=== PATIENT | male | born 1975 | race Caucasian/White ===

== ENCOUNTER 2016-07-24 13:20 | Emergency (ER) | payer OTHER ==
--- NOTE | 2016-07-24 14:44 | EKG ---
[facility] [address] [place] [address] Test Date: 2016-07-24 Test Time: 13:31:36 Pat Name: YAHAIRA LUNDBERG Department: Room: Gender: M Clinical Services Assistant: : 1975 Requested By: FARIDEH CA Order Number: [id number] Reading MD: Measurements Intervals [place] Rate: 69 P: 29 CO: 120 QRS: 25 QRSD: 92 T: 16 QT: 370 QTc: 398 Interpretive Statements SINUS RHYTHM RI6.01 Unconfirmed report No previous ECG available for comparison
[2016-07-24] MEDS ORDERED: FENTANYL PF 100 MCG/2 ML VIAL. IV PRN (15:00)
[2016-07-24 15:06] LABS: BASO % 0 % (0-3); EOS % 2 % (0-3); HEMATOCRIT 44.9 % (39.0-53.0); HEMOGLOBIN 15.1 g/dL (13.0-17.5); LYMPH # 1.2 x10^3/uL (1.0-4.8); LYMPH % 16 % (24-48); MEAN CORPUSCULAR HEMOGLOBIN 32 pg (25-35); MEAN CORPUSCULAR HGB CONC 34 g/dL (31-37); MEAN CORPUSCULAR VOLUME 95 fL (79-100); MONO % 14 % (0-9); NEUT % 68 % (31-73); PLATELET COUNT 188 x10^3/uL (140-400); RED BLOOD COUNT 4.74 x10^6/uL (4.30-5.70); RED CELL DISTRIBUTION WIDTH 13.7 % (11.5-14.5); WHITE BLOOD COUNT 7.6 x10^3/uL (4.0-11.0)
[2016-07-24 15:14] LABS: INR 1.1 (0.8-1.1); PROTHROMBIN TIME PATIENT 13.7 SEC (11.7-14.0)
[2016-07-24] MEDS ORDERED: ONDANSETRON PF 4 MG/2 ML VIAL. IV ONE (15:15)
[2016-07-24] MEDS ORDERED: CONTRAST GIVEN MC PRN (15:15)
[2016-07-24] MEDS ORDERED: IOHEXOL 300 MG/ML 75 ML VIAL IV ONE (15:15)
[2016-07-24] MEDS ORDERED: IOHEXOL 240 MG/ML 50ML VIAL. PO ONE (15:15)
[2016-07-24 15:16] LABS: CALCIUM 9.4 mg/dL (8.5-10.1); CREATININE 1.1 mg/dL (0.7-1.3); GFR 73.4; POTASSIUM 4.2 mmol/L (3.5-5.1)
[2016-07-24 15:24] LABS: ALBUMIN 3.8 g/dL (3.4-5.0); TOTAL BILIRUBIN 0.5 mg/dL (0.2-1.0); TOTAL PROTEIN 7.7 g/dL (6.4-8.2)
[2016-07-24 15:36] LABS: BILIRUBIN,URINE NEGATIVE (NEG); GLUCOSE,URINE NEGATIVE (NEG); NITRITE,URINE NEGATIVE (NEG); PH,URINE 5.5; PROTEIN,URINE NEGATIVE (NEG-TRACE)
[2016-07-24 15:43] LABS: BACTERIA,URINE 0 /HPF (0-FEW); RBC,URINE 0 /HPF (0-2); WBC,URINE 0 /HPF (0-4)
[2016-07-24 16:00] VITALS: BP 116/62
--- NOTE | 2016-07-24 16:26 | PHYS DOC ---
Past Medical History Past Medical History: Other Additional Past Medical Histor: NF2 Past Surgical History: Other Additional Past Surgical Histo: ACHILLES TENDON SX,HERNIA Alcohol Use: Rarely Drug Use: None Adult General Chief Complaint Chief Complaint: ABDOMINAL PAIN HPI HPI Patient is a 41 year old male complaining of left-sided abdominal pain which started last night before he went to bed, did not keep him awake during the night, but when he woke up this morning it was "bad" and has persisted since he woke up without getting better or going away. He did have pain similar to this when he had an umbilical hernia, had 2 surgeries for that in 2007 and 2008. He has not had recurrence of his umbilical hernia. He has had nausea but no vomiting. Last bowel movement was yesterday afternoon. It was normal. He has been otherwise well. PCP Dr. Whipple Review of Systems Review of Systems Constitutional: Denies fever or chills [] Eyes: Denies change in visual acuity, redness, or eye pain [] HENT: Denies nasal congestion or sore throat [] Respiratory: Denies cough or shortness of breath [] Cardiovascular: Denies chest pain GI: As in history of present illness : Denies dysuria or hematuria [] Musculoskeletal: Denies back pain or joint pain [] Integument: Denies rash or skin lesions [] Neurologic: Denies headache, focal weakness or sensory changes [] Current Medications Current Medications Current Medications Medications (Trade) Dose Ordered Sig/Gardenia Start Time Stop Time Status Last Admin Dose Admin Fentanyl Citrate (Fentanyl 2ml Vial) 50 mcg PRN Q15MIN PRN 07/24/16 15:00 07/25/16 14:59 07/24/16 15:11 50 MCG Info (Do NOT chart on this entry -- for MONITORING) 1 each PRN DAILY PRN 07/24/16 15:15 07/26/16 15:14 Iohexol (Omnipaque 240 Mg/ml) 30 ml 1X ONCE 07/24/16 15:15 07/24/16 15:17 DC 07/24/16 15:15 30 ML Iohexol (Omnipaque 300 Mg/ml) 75 ml 1X ONCE 07/24/16 15:15 07/24/16 15:17 DC 07/24/16 16:50 75 ML Magnesium Citrate (Citroma) 296 ml 1X ONCE 07/24/16 17:30 07/24/16 17:31 DC Ondansetron HCl (Zofran) 8 mg 1X ONCE 07/24/16 15:15 07/24/16 15:16 DC 07/24/16 15:10 8 MG Allergies Allergies Allergies Coded Allergies Type Severity Reaction Last Updated Verified No Known Drug Allergies 09/03/15 No Physical Exam Physical Exam Constitutional: Well developed, well nourished, no acute distress, non-toxic appearance. [] HENT: Normocephalic, atraumatic, bilateral external ears normal, nose normal. [ ] Eyes: conjunctiva normal, no discharge. [] Neck: Normal range of motion, no stridor. [] Cardiovascular:Heart rate regular rhythm, no murmur [] Lungs & Thorax: Bilateral breath sounds clear to auscultation [] Abdomen: Moderately distended. Increased tympany on the left. Bowel sounds present to hyperactive, slightly high-pitched. Umbilical hernia scar is present , no umbilical hernia noted. No abdominal wall hernia noted. Tender to palpation on the left side of the abdomen, nonlocalized, no rebound or guarding. Essentially no right-sided abdominal tenderness present. Skin: Warm, dry, no erythema, no rash. [] Extremities: No tenderness, no cyanosis, no clubbing, ROM intact, no edema. [] Neurologic: Alert and oriented X 3, normal motor function, normal sensory function, no focal deficits noted. [] Current Patient Data Vital Signs Vital Signs Date Time Temp Pulse Resp B/P Pulse Ox O2 Delivery O2 Flow Rate FiO2 07/24/16 16:00 58 116/62 97 Room Air 07/24/16 15:11 18 07/24/16 13:34 98.1 98.1 Lab Values Laboratory Tests Test 07/24/16 13:30 07/24/16 15:30 White Blood Count 7.6x10^3/uL (4.0-11.0) Red Blood Count 4.74x10^6/uL (4.30-5.70) Hemoglobin 15.1g/dL (13.0-17.5) Hematocrit 44.9% (39.0-53.0) Mean Corpuscular Volume 95fL (79-100) Mean Corpuscular Hemoglobin 32pg (25-35) Mean Corpuscular Hemoglobin Concent 34g/dL (31-37) Red Cell Distribution Width 13.7% (11.5-14.5) Platelet Count 188x10^3/uL (140-400) Neutrophils (%) (Auto) 68% (31-73) Lymphocytes (%) (Auto) 16% (24-48) L Monocytes (%) (Auto) 14% (0-9) H Eosinophils (%) (Auto) 2% (0-3) Basophils (%) (Auto) 0% (0-3) Neutrophils # (Auto) 5.2x10^3uL (1.8-7.7) Lymphocytes # (Auto) 1.2x10^3/uL (1.0-4.8) Monocytes # (Auto) 1.0x10^3/uL (0.0-1.1) Eosinophils # (Auto) 0.1x10^3/uL (0.0-0.7) Basophils # (Auto) 0.0x10^3/uL (0.0-0.2) Prothrombin Time 13.7SEC (11.7-14.0) Prothrombin Time INR 1.1 (0.8-1.1) PTT 29SEC (24-38) Sodium Level 143mmol/L (136-145) Potassium Level 4.2mmol/L (3.5-5.1) Chloride Level 105mmol/L (98-107) Carbon Dioxide Level 29mmol/L (21-32) Anion Gap 9 (6-14) Blood Urea Nitrogen 27mg/dL (8-26) H Creatinine 1.1mg/dL (0.7-1.3) Estimated GFR (Cockcroft-Gault) 73.4 BUN/Creatinine Ratio 25 (6-20) H Glucose Level 93mg/dL (70-99) Calcium Level 9.4mg/dL (8.5-10.1) Total Bilirubin 0.5mg/dL (0.2-1.0) Aspartate Amino Transferase (AST) 26U/L (15-37) Alanine Aminotransferase (ALT) 48U/L (16-63) Alkaline Phosphatase 82U/L (46-116) Total Protein 7.7g/dL (6.4-8.2) Albumin 3.8g/dL (3.4-5.0) Albumin/Globulin Ratio 1.0 (1.0-1.7) Lipase 242U/L (73-393) Urine Collection Type Unknown Urine Color Yellow Urine Clarity Clear Urine pH 5.5 Urine Specific [place] >=1.030 Urine Protein Negativemg/dL (NEG-TRACE) Urine Glucose (UA) Negativemg/dL (NEG) Urine Ketones (Stick) Negativemg/dL (NEG) Urine Blood Negative (NEG) Urine Nitrite Negative (NEG) Urine Bilirubin Negative (NEG) Urine Urobilinogen Dipstick 1.0mg/dL (0.2 mg/dL) Urine Leukocyte Esterase Negative (NEG) Urine RBC 0/HPF (0-2) Urine WBC 0/HPF (0-4) Urine Bacteria 0/HPF (0-FEW) Urine Mucus Mod/LPF Laboratory Tests 07/24/16 13:30 Laboratory Tests 07/24/16 13:30 EKG EKG [] Radiology/Procedures Radiology/Procedures CT scan of the abdomen and pelvis read by the radiologist. Negative for bowel obstruction or any other acute abnormality. [] Course & Med Decision Making Course & Med Decision Making Pertinent Labs and Imaging studies reviewed. (See chart for details) 41-year-old male with a history of 2 surgeries for umbilical hernia repair several years ago, presents with left-sided abdominal pain since yesterday. I'm concerned about a possible bowel dissection. I discussed with the patient labs, CT scan with oral and IV contrast, and he is agreeable to that plan. He was given some IV pain and nausea medications. Labs unrevealing, CT scan negative for acute abnormality. The patient stated after CT scan his pain was about the same to slightly improved. I discussed with the patient and his return precautions. We will start him on antibiotics for possible diverticulitis since his pain is left-sided and has persisted for more than 12 hours. He is agreeable to that plan. [] Dragon Disclaimer Dragon Disclaimer This electronic medical record was generated, in whole or in part, using a voice recognition dictation system. Departure Departure Impression: Primary Impression: Left sided abdominal pain of unknown cause Disposition: HOME, SELF-CARE Condition: STABLE Referrals: ROSA WHIPPLE MD (PCP) Patient Instructions: Abdominal Pain, [id number], Diverticulitis, Easy-to- Read Additional Instructions: Go home and drink the bottle of magnesium citrate, which is a strong laxative. See if having good "results" will help your pain. Even though your tests were normal, we will start you on antibiotics for possible diverticulitis. Take as directed. If you get worse instead of better, if you have new symptoms, return to emergency for recheck. If not better in 3-5 days, see your doctor. Scripts Ciprofloxacin Hcl (Cipro)500 Mg Tablet1 Tab PO BID #20 TAB Prov:FARIDEH CA MD 07/24/16 Metronidazole 250 Mg Buurpp673 Mg PO TID #30 TAB Prov:FARIDEH CA MD 07/24/16 FARIDEH CA MD Jul 24, 2016 16:26
--- NOTE | 2016-07-24 17:14 | RAD ---
PQRS Compliance Statement: One or more of the following individualized dose reduction techniques were utilized for this examination: 1. Automated exposure control 2. Adjustment of the mA and/or kV according to patient size 3. Use of iterative reconstruction technique CT of the abdomen and pelvis with contrast, 07/24/2016: History: Left-sided abdominal pain, previous hernia repair Multidetector CT imaging was performed following oral and IV administration of contrast. The liver is unremarkable. No gallbladder abnormality is seen. The pancreas shows no abnormality. The spleen is of normal size. Tiny radiopacities in the left renal collecting system probably represent early IV excretion of the iodinated contrast material rather than calculi. The collecting systems and ureters are not dilated. No adrenal abnormality is detected. The abdominal aorta is unremarkable. No abdominal or pelvic adenopathy is seen. The bowel loops are not dilated. The appendix is visualized and shows no abnormality. No free fluid or free air is evident in the abdomen or pelvis. There is mild streaky increased density in the subcutaneous soft tissues in the umbilical region. This probably represents inflammation or scarring in this patient with a history of previous umbilical hernia repair. There is also slightly increased density in the abdominal fat deep to the presumed surgical site. No well-defined fluid collection is seen. No bowel herniation is evident. IMPRESSION: 1. Postsurgical change involving the anterior abdominal wall at the umbilical level. 2. No acute intra-abdominal or pelvic abnormality is detected.
[2016-07-24] MEDS ORDERED: CIPR500T94 PO (17:29)
[2016-07-24] MEDS ORDERED: METR250T3 PO (17:29)
[2016-07-24] MEDS ORDERED: MAGNESIUM CITRATE 296 ML SOLUTION. PO ONE (17:30)
== END 2016-07-24 17:37 | disposition home or self-care (01) ==
LOC: ER 13:20
DX: R10.9 Unspecified abdominal pain (principal); Z87.19 Personal history of other diseases of the digestive system; Z98.890 Other specified postprocedural states
CPT/HCPCS: 36415; 74177; 80053; 81001; 83690; 85027; 85610; 85730; 93005; 96374; 96375; 99285; J2405; J3010; Q9966; Q9967

== ENCOUNTER 2020-05-20 13:39 | Emergency (ER) | payer OTHER ==
[~2020-05-20] VITALS: Ht 170.2 cm; Wt 130.0 kg
[~2020-05-20 13:39] MED LIST: CIPR500T94 PO; METR-111 PO
[2020-05-20 14:15] VITALS: BP 139/73
--- NOTE | 2020-05-20 15:01 | RAD ---
Right Leg Venous Doppler Ultrasound, 05/20/2020 Indication: Right hip pain Comparison: None available Procedure: Real-time grayscale, color flow color duplex Doppler and spectral analysis are obtained w ith and without compression in the area of the common femoral vein, superficial femoral vein - femora l vein junction, main femoral vein (superficial femoral vein) and popliteal vein. Veins of the proxim al calf are also imaged. Findings: There is occlusive thrombus in the right superficial femoral vein proximally to the poplit eal vein. Normal duplex flow, color flow and compressibility of all remainder visualized vein segment s. No evidence of deep venous thrombus is present. Impression: Study is positive for DVT involving the right lower extremity Electronically signed by: Katie Barbosa MD (05/20/2020 2:58 PM) [id number]
--- NOTE | 2020-05-20 15:15 | ED.ADGEN ---
Past Medical History Past Medical History: Other Additional Past Medical Histor: NF2 Past Surgical History: Other Additional Past Surgical Histo: ACHILLES TENDON SX,HERNIA Smoking Status: Never Smoker Alcohol Use: Rarely Drug Use: None General Adult EDM: Chief Complaint: LOWER EXTREMITY SWELLING HPI: HPI: Patient is a 45-year-old male who presents to the emergency room complaining of right leg swelling. Swelling started over the last 3 to 4 days. He has never had anything similar to this in the past. He denies any recent travel. He states that the leg is overall very painful. He has pain in his calf that radiates into his lateral thigh. He denies any significant redness to the leg. He has never had a blood clot previously. Review of Systems: Review of Systems: Complete ROS is negative unless otherwise documented in HPI Allergies: Allergies: Allergies Coded Allergies Type Severity Reaction Last Updated Verified No Known Drug Allergies 09/03/15 No Physical Exam: PE: General: Awake, alert, NAD. Well Nourished, well hydrated. Cooperative HEENT: Atraumatic, EOMI, PERRL, airway patent, moist oral mucosa Neck: Supple, trachea midline Respiratory: CTA bilaterally, normal effort, no wheezing/crackles CV: RRR, no murmur, cap refill <2 GI: Soft, nondistended, nontender, no masses MSK: Right lower extremity: Swelling and mild erythema to the right calf with tenderness upon flexion of and pressure along the calf, 2+ DP pulse, intact sensation/strength Skin: Warm, dry, intact Neuro: A&O x3, speech NL, sensory and motor grossly intact, no focal deficits Psych: Normal affect, normal mood, not suicidal or homicidal Current Patient Data: Vital Signs: Vital Signs Date Time Temp Pulse Resp B/P (MAP) Pulse Ox O2 Delivery O2 Flow Rate FiO2 05/20/20 14:15 100.0 84 18 139/73 (95) 95 Room Air 100.0 EKG: EKG: [] Heart Score: Risk Factors: Risk Factors: DM, Current or recent (<one month) smoker, HTN, HLP, family histo ry of CAD, obesity. Risk Scores: Score 0 - 3: 2.5% MACE over next 6 weeks - Discharge Home Score 4 - 6: 20.3% MACE over next 6 weeks - Admit for Clinical Observation Score 7 - 10: 72.7% MACE over next 6 weeks - Early Invasive Strategies Radiology/Procedures: Radiology/Procedures: [] Course & Med Decision Making: Course & Med Decision Making Pertinent Labs and Imaging studies reviewed. (See chart for details) Patient 45-year-old male who presents to the emergency room with right leg swelling. Ultrasound was ordered and patient has a DVT at this time. I discussed with him the options of being admitted versus being sent home on oral anticoagulants. At this time he would like to go home. We have discussed the risks and benefits of anticoagulation. He will be placed on Eliquis with a loading dose. I have discussed with him that he will need to follow-up with his primary care doctor because he will need further anticoagulation. Patient's test results and vitals while in the ED were fully reviewed and discussed with the patient. Patient is stable and at this time does not need admission to the hospital. We have discussed strict return precautions and the importance of following up with their Primary Care Physician. Patient stated understanding and was given an opportunity to ask any questions. Patient is in agreement with plan. Bruce Disclaimer: Bruce Disclaimer: This electronic medical record was generated, in whole or in part, using a voice recognition dictation system. Departure Departure Impression: Primary Impression: DVT (deep venous thrombosis) Disposition: 01 DC HOME SELF CARE/HOMELESS Condition: STABLE Referrals: UNKNOWN PCP NAME (PCP) Patient Instructions: Deep Vein Thrombosis Scripts Apixaban (ELIQUIS) 5 Mg Tablet 5 MG PO BID, #74 TAB Take 2 tablets twice a day for 7 days then take 1 tablet once a day Prov: NBA WALTERS MD 05/20/20 NBA WALTERS MD May 20, 2020 15:15
[2020-05-20] MEDS ORDERED: APIX5TAB PO (15:34)
== END 2020-05-20 15:50 | disposition home or self-care (01) ==
LOC: ER 13:39
DX: I82.401 Acute embolism and thrombosis of unspecified deep veins of right lower extremity (principal)
CPT/HCPCS: 93971; 99284-25

== ENCOUNTER 2020-06-02 21:11 | Inpatient (IN) | payer OTHER ==
[~2020-06-02] VITALS: Ht 170.2 cm; Wt 114.6 kg
[~2020-06-02 21:11] MED LIST changes: +APIX5TAB PO
--- NOTE | 2020-06-02 22:47 | RAD ---
Right Lower Extremity Venous Doppler Ultrasound History: Worsening swelling Comparison: May 20, 2020 Procedure: Color flow, duplex, spectral analysis and 2D images are obtained with and without compress ion in the area of the common femoral vein, superficial femoral vein - femoral vein junction, main fe moral vein (superficial femoral vein) and popliteal vein. Veins of the proximal calf are also imaged. Findings: There is nonocclusive thrombus in the deep femoral vein and the proximal and mid femoral vein and occ luding thrombus in the distal femoral vein and popliteal vein and anterior peroneal vein. There is al so clot in the PT views. Impression: Extensive right-sided DVT has become worse since the prior study. Electronically signed by: Antony Castanon III, MD (06/02/2020 10:45 PM) [facility]
--- NOTE | 2020-06-02 23:52 | ED.ADGEN ---
Past Medical History Past Medical History: DVT, Other Additional Past Medical Histor: NF2 Past Surgical History: Other Additional Past Surgical Histo: ACHILLES TENDON SX,HERNIA Smoking Status: Never Smoker Alcohol Use: Rarely Drug Use: None General Adult EDM: Chief Complaint: LOWER EXTREMITY SWELLING HPI: HPI: Patient is a 45-year-old male who presents to the emergency room complaining of worsening swelling in his right lower extremity. Patient was seen here in the emergency room on 20 May at that time was diagnosed with a DVT. Since then his swelling has progressively gotten worse. He was discharged home on Eliquis which he has been taking as prescribed. He states that the swelling has been a slow progression. He has increased pain in his leg. He has been getting up and moving around as he was directed to. He denies any chest pain or shortness of breath. He has some mild redness in his lower leg. Most of his pain is up by his thigh. Pain feels like aching and pressure. Review of Systems: Review of Systems: Complete ROS is negative unless otherwise documented in HPI Current Medications: Current Medications Medications (Trade) Dose Ordered Sig/Gardenia Start Time Stop Time Status Last Admin Dose Admin Heparin Sodium (Porcine) (Heparin Sodium) 5,000 unit 1X ONCE 06/03/20 01:00 06/03/20 01:01 DC Heparin Sodium/ Dextrose 250 ml @ 0 mls/hr CONT PRN 06/03/20 00:30 Allergies: Allergies: Allergies Coded Allergies Type Severity Reaction Last Updated Verified No Known Drug Allergies 09/03/15 No Physical Exam: PE: General: Awake, alert, NAD. Well Nourished, well hydrated. Cooperative HEENT: Atraumatic, EOMI, PERRL, airway patent, moist oral mucosa Neck: Supple, trachea midline Respiratory: CTA bilaterally, normal effort, no wheezing/crackles CV: RRR, no murmur, cap refill <2 GI: Soft, nondistended, nontender, no masses MSK: Right lower extremity: Diffuse swelling of the right lower extremity with mild erythema around the ankle, 2+ DP pulse, no rash, no skin breakdown, calf tenderness Skin: Warm, dry, intact Neuro: A&O x3, speech NL, sensory and motor grossly intact, no focal deficits Psych: Normal affect, normal mood, not suicidal or homicidal Current Patient Data: Vital Signs: Vital Signs Date Time Temp Pulse Resp B/P (MAP) Pulse Ox O2 Delivery O2 Flow Rate FiO2 06/02/20 22:30 70 14 147/80 (102) 97 Room Air 06/02/20 21:25 98.4 98.4 EKG: EKG: [] Heart Score: Risk Factors: Risk Factors: DM, Current or recent (<one month) smoker, HTN, HLP, family history of CAD, obesity. Risk Scores: Score 0 - 3: 2.5% MACE over next 6 weeks - Discharge Home Score 4 - 6: 20.3% MACE over next 6 weeks - Admit for Clinical Observation Score 7 - 10: 72.7% MACE over next 6 weeks - Early Invasive Strategies Radiology/Procedures: Radiology/Procedures: [] Course & Med Decision Making: Course & Med Decision Making Pertinent Labs and Imaging studies reviewed. (See chart for details) Patient 45-year-old male who presents to the emergency room complaining of worsening swelling in his leg. Patient has been on Eliquis. Ultrasound was ordered to rule out Eliquis failure. Patient has extensive DVT that is significantly worse than prior. He will be admitted on a heparin drip for further determination of appropriate anticoagulation. Dragon Disclaimer: [email or web address] Disclaimer: This electronic medical record was generated, in whole or in part, using a voice recognition dictation system. Departure Departure Impression: Primary Impression: Dvt femoral (deep venous thrombosis) Disposition: ADMITTED INPT THIS HOSP Condition: STABLE Referrals: UNKNOWN PCP NAME (PCP) NBA WALTERS MD Jun 02, 2020 23:52
[2020-06-03] MEDS ORDERED: HEPARIN for IV BOLUS 10,000 UNIT/10 ML VIAL. IV PRN ×2 (00:30)
[2020-06-03] MEDS ORDERED: HEPARIN for IV BOLUS 10,000 UNIT/10 ML VIAL. IV ONE (01:00)
[2020-06-03 01:18] LABS: BASO % 1 % (0-3); EOS # 0.1 x10^3/uL (0.0-0.7); EOS % 2 % (0-3); HEMATOCRIT 38.4 % (39.0-53.0); HEMOGLOBIN 13.1 g/dL (13.0-17.5); LYMPH % 15 % (24-48); MEAN CORPUSCULAR HEMOGLOBIN 31 pg (25-35); MEAN CORPUSCULAR HGB CONC 34 g/dL (31-37); MEAN CORPUSCULAR VOLUME 92 fL (79-100); MONO # 0.6 x10^3/uL (0.0-1.1); MONO % 9 % (0-9); NEUT % 74 % (31-73); PLATELET COUNT 229 x10^3/uL (140-400); RED BLOOD COUNT 4.17 x10^6/uL (4.30-5.70); RED CELL DISTRIBUTION WIDTH 13.1 % (11.5-14.5); WHITE BLOOD COUNT 6.7 x10^3/uL (4.0-11.0)
[2020-06-03 01:27] LABS: CALCIUM 9.1 mg/dL (8.5-10.1); GFR 80.4; POTASSIUM 3.8 mmol/L (3.5-5.1)
[2020-06-03] MEDS: HEPARIN 25,000UTS/250ML PREMIX 250 ML IV PRN ×2 (02:08→15:56)
[2020-06-03 03:00] VITALS: BP 148/70
[2020-06-03 07:00] VITALS: BP 126/73
--- NOTE | 2020-06-03 07:13 | PDOC1 ---
History and Physical Date of Admission Date of Admission DATE: 06/03/20 TIME: 07:12 Identification/Chief Complaint Chief Complaint Right leg DVT Source Source: Patient History of Present Illness History of Present Illness Mr Collazo is a 45-year-old male with PMH neurofibromatosis 2, recent DVT who presents to the emergency room complaining of worsening swelling in his right lower extremity. Patient was seen here in the emergency room on 20 May at that time was diagnosed with a DVT in his right lower extremity and was discharged on 10 mg Eliquis twice daily for 7 days and 5 mg twice daily thereafter and has been compliant with this therapy. Since then his swelling has progressively gotten worse. He has increased pain in his leg. 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 He denies any chest pain or shortness of breath. Most of his pain is up by his thigh. Pain feels like aching and pressure. He is a non-smoker does not drink or use drugs. He does note that he has a paternal uncle who did have a DVT. His maternal grandmother did have a gynecological malignancy but otherwise no cancer history in the family. Labs with no acute abnormality Right lower extremity venous Doppler reveals more extensive DVT. Started on heparin GTT with warfarin and admitted for further care due to Eliquis failure. Past Medical History CENTRAL NERVOUS SYSTEM: Other (Neurofibromatosis II) Heme/Onc: Other (DVT) Past Surgical History Past Surgical History Right achilles tendon repair 2012 Past Surgical History: Hernia Repair Family History Family History: Cancer ([employer]argo [employer] - maternal grandmother), Other (DVT - paternal uncle) Social History Smoke: No ALCOHOL: none Drugs: None Current Problem List Problem List Problems Medical Problems: (1) Dvt femoral (deep venous thrombosis) Status: Acute Current Medications Current Medications Current Medications Heparin Sodium/ Dextrose 250 ml @ 0 mls/hr CONT PRN IV PER PROTOCOL Last administered on 06/03/20at 02:08; Start 06/03/20 at 00:30 Heparin Sodium (Porcine) (Heparin Sodium) 3,600 unit PRN Q6HRS PRN IV FOR UFH LEVEL LESS THAN 0.2; Start 06/03/20 at 00:30 Heparin Sodium (Porcine) (Heparin Sodium) 1,800 unit PRN Q6HRS PRN IV FOR UFH LEVEL 0.2 - 0.29; Start 06/03/20 at 00:30 Heparin Sodium (Porcine) (Heparin Sodium) 5,000 unit 1X ONCE IV Last administered on 06/03/20at 01:13; Start 06/03/20 at 01:00; Stop 06/03/20 at 01:01; Status DC Influenza Virus Vaccine Quadrival (Fluzone Quad [id number] Syringe) 0.5 ml ONCE ONCE VAX IM ; Start 06/03/20 at 09:00; Stop 06/03/20 at 09:01 Warfarin Sodium (Coumadin) 6 mg 1X WARF ONCE PO ; Start 06/03/20 at 16:00; Stop 06/03/20 at 16:01; Status UNV Warfarin Sodium (Coumadin Per Pharmacy) 1 each PRN DAILY PRN MC SEE COMMENTS; Start 06/03/20 at 07:15; Status UNV Active Scripts Active Eliquis (Apixaban) 5 Mg Tablet 5 Mg PO BID Take 2 tablets twice a day for 7 days then take 1 tablet once a day Allergies Allergies: Coded Allergies: No Known Drug Allergies (Unverified , 09/03/15) ROS General: No: Chills, Night Sweats, Fatigue, Malaise, Appetite, Other PSYCHOLOGICAL ROS: No: Anxiety, Behavioral Disorder, Concentration difficultie, Decreased libido, Depression, Disorientation, Hallucinations, Hostility, Irritab lity, Memory difficulties, Mood Swings, Obsessive thoughts, Physical abuse, Sexual abuse, Sleep disturbances, Suicidal ideation, Other Eyes: No Blurry vision, No Decreased vision, No Double vision, No Dry eyes, No Excessive tearing, No Eye Pain, No Itchy Eyes, No Loss of vision, No Photophobia, No Scotomata, No Uses contacts, No Uses glasses, No Other HEENT: No: Heacaches, Visual Changes, Hearing change, Nasal congestion, Nasal discharge, Oral lesions, Sinus pain, Sore Throat, Epistaxis, Sneezing, Snoring, Tinnitus, Vertigo, Vocal changes, Other ALLERGY AND IMMUNOLOGY: No: Hives, Insect Bite Sensitivity, Itchy/Watery Eyes, Nasal Congestion, Post Nasal Drip, Seasonal Allergies, Other Hematological and Lymphatic: No: Bleeding Problems, Blood Clots, Blood Transfusions, Brusing, Night Sweats, Pallor, Swollen Lymph Nodes, Other ENDOCRINE: No: Breast Changes, Galactorrhea, Hair Pattern Changes, Hot Flashes, Malaise/lethargy, Mood Swings, Palpitations, Polydipsia/polyuria, Skin Changes, Temperature Intolerance, Unexpected Weight Changes, Other Breast: No New/Changing Breast Lumps, No Nipple changes, No Nipple discharge, No Other Respiratory: No: Cough, Hemoptysis, Orthopnea, Pleuritic Pain, Shortness of breath, SOB with excertion, Sputum Changes, Stridor, Tachypnea, Wheezing, Other Cardiovascular: yes Edema; No Chest Pain, No Palpitations, No Orthopnea, No Paroxysmal Noc. Dyspnea, No Lt Headedness, No Other Gastrointestinal: No Nausea, No Vomiting, No Abdominal Pain, No Diarrhea, No Constipation, No Melena, No Hematochezia, No Other Genitourinary: No Dysuria, No Frequency, No Incontinence, No Hematuria, No Retention, No Discharge, No Urgency, No Pain, No Flank Pain, No Other, No , No , No , No , No , No , No Musculoskeletal: Yes Gait Disturbance; No Joint Pain, No Joint Stiffness, No Joint Swelling, No Muscle Pain, No Muscular Weakness, No Pain In:, No Swelling In:, No Other Neurological: No Behavorial Changes, No Bowel/Bladder ControlChng, No Confusion, No Dizziness, No Gait Disturbance, No Headaches, No Impaired Coord/balance, No Memory Loss, No Numbness/Tingling, No Seizures, No Speech Pr oblems, No Tremors, No Visual Changes, No Weakness, No Other Skin: No Dry Skin, No Eczema, No Hair Changes, No Lumps, No Mole Changes, No Mottling, No Nail Changes, No Pruritus, No Rash, No Skin Lesion Changes, No Other, No Acne Physical Exam General: Alert, Oriented X3, Cooperative, No acute distress HEENT: Atraumatic, PERRLA, EOMI, Mucous membr. moist/pink Lungs: Clear to auscultation, Normal air movement Heart: S1S2, RRR, no thrills, no rubs, no gallops, no murmurs Abdomen: Normal bowel sounds, Soft, No tenderness, No hepatosplenomegaly, No masses Rectal Exam: not examined Extremities: No clubbing, No cyanosis, Normal pulses, Other (Right LE 3+ edema, swollen) Skin: No rashes, No breakdown, No significant lesion Neuro: Normal gait, Normal speech, Strength at 5/5 X4 ext, Normal tone, Sensation intact, Cranial nerves 3-12 NL, Reflexes 2+ Psych/Mental Status: Mental status NL, Mood NL Vitals Vitals Vital Signs Date Time Temp Pulse Resp B/P (MAP) Pulse Ox O2 Delivery O2 Flow Rate FiO2 06/03/20 03:00 98.0 59 18 148/70 (96) 99 Room Air 98.0 Labs Labs Laboratory Tests Test 06/03/20 01:09 White Blood Count 6.7 x10^3/uL (4.0-11.0) Red Blood Count 4.17 x10^6/uL (4.30-5.70) Hemoglobin 13.1 g/dL (13.0-17.5) Hematocrit 38.4 % (39.0-53.0) Mean Corpuscular Volume 92 fL (79-100) Mean Corpuscular Hemoglobin 31 pg (25-35) Mean Corpuscular Hemoglobin Concent 34 g/dL (31-37) Red Cell Distribution Width 13.1 % (11.5-14.5) Platelet Count 229 x10^3/uL (140-400) Neutrophils (%) (Auto) 74 % (31-73) Lymphocytes (%) (Auto) 15 % (24-48) Monocytes (%) (Auto) 9 % (0-9) Eosinophils (%) (Auto) 2 % (0-3) Basophils (%) (Auto) 1 % (0-3) Neutrophils # (Auto) 5.0 x10^3/uL (1.8-7.7) Lymphocytes # (Auto) 1.0 x10^3/uL (1.0-4.8) Monocytes # (Auto) 0.6 x10^3/uL (0.0-1.1) Eosinophils # (Auto) 0.1 x10^3/uL (0.0-0.7) Basophils # (Auto) 0.0 x10^3/uL (0.0-0.2) Activated Partial Thromboplast Time 34 SEC (24-38) Sodium Level 136 mmol/L (136-145) Potassium Level 3.8 mmol/L (3.5-5.1) Chloride Level 103 mmol/L (98-107) Carbon Dioxide Level 27 mmol/L (21-32) Anion Gap 6 (6-14) Blood Urea Nitrogen 20 mg/dL (8-26) Creatinine 1.0 mg/dL (0.7-1.3) Estimated GFR (Cockcroft-Gault) 80.4 Glucose Level 80 mg/dL (70-99) Calcium Level 9.1 mg/dL (8.5-10.1) Laboratory Tests Test 06/03/20 01:09 White Blood Count 6.7 x10^3/uL (4.0-11.0) Red Blood Count 4.17 x10^6/uL (4.30-5.70) Hemoglobin 13.1 g/dL (13.0-17.5) Hematocrit 38.4 % (39.0-53.0) Mean Corpuscular Volume 92 fL (79-100) Mean Corpuscular Hemoglobin 31 pg (25-35) Mean Corpuscular Hemoglobin Concent 34 g/dL (31-37) Red Cell Distribution Width 13.1 % (11.5-14.5) Platelet Count 229 x10^3/uL (140-400) Neutrophils (%) (Auto) 74 % (31-73) Lymphocytes (%) (Auto) 15 % (24-48) Monocytes (%) (Auto) 9 % (0-9) Eosinophils (%) (Auto) 2 % (0-3) Basophils (%) (Auto) 1 % (0-3) Neutrophils # (Auto) 5.0 x10^3/uL (1.8-7.7) Lymphocytes # (Auto) 1.0 x10^3/uL (1.0-4.8) Monocytes # (Auto) 0.6 x10^3/uL (0.0-1.1) Eosinophils # (Auto) 0.1 x10^3/uL (0.0-0.7) Basophils # (Auto) 0.0 x10^3/uL (0.0-0.2) Activated Partial Thromboplast Time 34 SEC (24-38) Sodium Level 136 mmol/L (136-145) Potassium Level 3.8 mmol/L (3.5-5.1) Chloride Level 103 mmol/L (98-107) Carbon Dioxide Level 27 mmol/L (21-32) Anion Gap 6 (6-14) Blood Urea Nitrogen 20 mg/dL (8-26) Creatinine 1.0 mg/dL (0.7-1.3) Estimated GFR (Cockcroft-Gault) 80.4 Glucose Level 80 mg/dL (70-99) Calcium Level 9.1 mg/dL (8.5-10.1) Images Images Right Lower Extremity Venous Doppler Ultrasound: There is nonocclusive thrombus in the deep femoral vein and the proximal and mid femoral vein and occluding thrombus in the distal femoral vein and popliteal vein and anterior peroneal vein. There is also clot in the PT views. Impression: Extensive right-sided DVT has become worse since the prior study. VTE Prophylaxis Ordered VTE Prophylaxis Devices: Yes VTE Pharmacological Prophylaxi: Yes Assessment/Plan Assessment/Plan A/P: Recurrent RLE DVT -technically failed Eliquis therapy, checking 10 a level. We will continue heparin GTT and bridge onto Coumadin therapy. Consult hematology for further recommendations. Will obtain CT angiogram chest abdomen pelvis to rule out an obstructive lesion. 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 Did have a recent procedure in his right ear though no actual neurofibromas. It was s uperficial. Recent COVID - march 13, still with some shortness of breath. FEN - General diet PPX - heparin, coumadin FULL CODE Dispo - inpatient. Justifications for Admission Other Justification PAUL VILLELA MD Jun 03, 2020 07:13
[2020-06-03 07:44] LABS: PROTHROMBIN TIME PATIENT 14.8 SEC (11.7-14.0)
[2020-06-03] MEDS ORDERED: FLU VACC QS 2020-21(6MOS+)/PF 0.5 ML SYRINGE. VAX IM ONE (09:00)
[2020-06-03 11:00] VITALS: BP 137/78
[2020-06-03 15:00] VITALS: BP 118/72
[2020-06-03] MEDS ORDERED: WARFARIN 3 MG TABLET. PO ONE (16:00)
[2020-06-03] MEDS ORDERED: IOHEXOL 350 MG/ML 100 ML VIAL. IV ONE (16:15)
[2020-06-03] MEDS ORDERED: CONTRAST GIVEN. MC PRN (16:30)
--- NOTE | 2020-06-03 17:47 | RAD ---
CTA scan of the Chest with Contrast (Pulmonary Embolism protocol) 06/03/2020 Clinical History: DVT. Technique: After the intravenous administration of 100 cc of Isovue-370, contiguous, 0.625 mm axial s ections were obtained through the chest. 2 mm axial and 3D MIP coronal and sagittal reconstructed im ages were obtained. One or more of the following individualized dose reduction techniques were utilized for this study: 1. Automated exposure control. 2. Adjustment of the mA and/or kV according to patient size. 3. Use of iterative reconstruction technique. Findings: Small nonocclusive filling defects are seen involving branches of the right lower lobe pulm onary artery consistent with pulmonary emboli. No additional filling defect is seen. The heart and th oracic aorta are within normal limits. No hilar, mediastinal or axillary lymphadenopathy is seen. Minimal dependent subsegmental atelectasis is seen involving both lungs. Small bulla are seen involvi ng the right lower lobe. No area of consolidation is noted. No pneumothorax or pleural effusion is se en. Impression: Small nonocclusive pulmonary emboli are seen involving the right lower lobe. These findings were discussed with patient's nurse. CT scan of the abdomen and pelvis with contrast 06/03/2020 CLINICAL HISTORY: Unexplained DVT involving the right lower extremity. TECHNIQUE: After the intravenous administration of 100 cc of Isovue-370, contiguous, 5 mm axial secti ons were obtained through abdomen and pelvis. One or more of the following individualized dose reduction techniques were utilized for this study: 1. Automated exposure control. 2. Adjustment of the mA and/or kV according to patient size. 3. Use of iterative reconstruction technique. FINDINGS: Images through the lung bases demonstrate minimal dependent subsegmental atelectasis bilate rally. The liver, spleen, pancreas, adrenal glands and kidneys are within normal limits. The abdominal aorta tapers normally. The gallbladder is contracted. The appendix is well-visualized a nd is within normal limits. There is no evidence of bowel obstruction. No free fluid or free air is s een within the abdomen. No retroperitoneal lymphadenopathy is seen. Images through the pelvis demonstrate the urinary bladder distended with urine. The prostate gland is mildly enlarged. No free fluid is seen. No abnormal soft tissue mass is noted. No pelvic or inguinal lymphadenopathy is seen. Minimal S-shaped curvature of the thoracolumbar spine is seen. Degenerative changes are seen involving the mid and lower lumbar spine along with both hips. IMPRESSION: No acute abnormality is seen. Electronically signed by: Daquan Berg MD (06/03/2020 5:42 PM) [id number]
[2020-06-03 19:00] VITALS: BP 144/84
[2020-06-03 23:00] VITALS: BP 126/82
[2020-06-04 03:00] VITALS: BP 141/84
[2020-06-04 07:00] VITALS: BP 120/72
[2020-06-04] MEDS: HEPARIN 25,000UTS/250ML PREMIX 250 ML IV PRN (07:38)
--- NOTE | 2020-06-04 07:55 | PDOC ---
[facility] PROGRESS NOTE Date of Service DOS: DATE: 06/04/20 TIME: 07:52 Chief Complaint Chief Complaint A/P: Recurrent RLE DVT - failed Eliquis therapy, checking 10 a level. We will continue heparin GTT and bridge onto Coumadin therapy. Consult hematology for further recommendations. Will obtain CT angiogram chest abdomen pelvis to rule out an obstructive lesion. Acute pulmonary embolism - likely due to DVT treatment failure. 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 Did have a recent procedure in his right ear though no actual neurofibromas. It was superficial. Recent COVID - march 13, still with some shortness of breath. FEN - General diet PPX - heparin, coumadin FULL CODE Dispo - inpatient. History of Present Illness History of Present Illness Mr Collazo is a 45-year-old male with PMH neurofibromatosis 2, recent DVT who presents to the emergency room complaining of worsening swelling in his right lower extremity. Patient was seen here in the emergency room on 20 May at t hat time was diagnosed with a DVT in his right lower extremity and was discharged on 10 mg Eliquis twice daily for 7 days and 5 mg twice daily thereafter and has been compliant with this therapy. Since then his swelling has progressively gotten worse. He has increased pain in his leg. 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 He denies any chest pain or shortness of breath. Most of his pain is up by his thigh. Pain feels like aching and pressure. He does note he was diagnosed with SARS-CoV-2 on 03/13/2020 and did not require hospitalization though he still does have cough fatigue and weakness related to this. He is a non-smoker does not drink or use drugs. He does note that he has a paternal uncle who did have a DVT. His maternal grandmother did have a gynecological malignancy but otherwise no cancer history in the family. Labs with no acute abnormality Right lower extremity venous Doppler reveals more extensive DVT. Started on heparin GTT with warfarin and admitted for further care due to Eliquis failure. Underwent CTPA which revealed right lower lobe pulmonary emboli. CT abdomen pelvis with no lymphadenopathy no obstructive lesions mild prostate hyperplasia. Overnight afebrile. No chest pain despite his diagnosis of right-sided PE. Swelling in his right lower extremity is improving slightly today. Pain is improved a little bit. Vitals/I&O Vitals/I&O: Vital Signs Date Time Temp Pulse Resp B/P (MAP) Pulse Ox O2 Delivery O2 Flow Rate FiO2 06/04/20 03:00 97.9 65 18 141/84 (103) 96 Room Air 97.9 I & O 06/03/20 06/03/20 06/04/20 15:00 23:00 07:00 Intake Total 235 ml 500 ml Output Total 400 ml 300 ml 450 ml Balance -400 ml -65 ml 50 ml Physical Exam General: Alert, Oriented X3, Cooperative, No acute distress Abdomen: Normal bowel sounds, Soft, No tenderness, No hepatosplenomegaly, No masses Extremities: No clubbing, No cyanosis, Normal pulses, Other (Right LE 3+ edema, swollen) Skin: No rashes, No breakdown, No significant lesion Labs Labs: Laboratory Tests Test 06/03/20 09:13 Activated Partial Thromboplast Time 109 SEC (24-38) Assessment and Plan Assessmemt and Plan Problems Medical Problems: (1) Dvt femoral (deep venous thrombosis) Status: Acute Comment Review of Relevant I have reviewed the following items lowell (where applicable) has been applied. Medications: Current Medications Medications (Trade) Dose Ordered Sig/Gardenia Route PRN Reason Start Time Stop Time Status Last Admin Dose Admin Influenza Virus Vaccine Quadrival (Fluzone Quad Syringe) 0.5 ml ONCE ONCE VAX IM 06/03/20 09:00 06/03/20 09:01 DC 06/03/20 08:44 Warfarin Sodium (Coumadin) 6 mg 1X WARF ONCE PO 06/03/20 16:00 06/03/20 16:01 DC 06/03/20 15:53 Iohexol (Omnipaque 350 Mg/ml) 100 ml 1X ONCE IV 06/03/20 16:15 06/03/20 16:16 DC 06/03/20 16:35 Images: CTPA: Small nonocclusive filling defects are seen involving branches of the right lower lobe pulmonary artery consistent with pulmonary emboli. No additional filling defect is seen. The heart and thoracic aorta are within normal limits. No hilar, mediastinal or axillary lymphadenopathy is seen. Minimal dependent subsegmental atelectasis is seen involving both lungs. Small bulla are seen involving the right lower lobe. No area of consolidation is noted. No pneumothorax or pleural effusion is seen. Impression: Small nonocclusive pulmonary emboli are seen involving the right lower lobe. CT scan of the abdomen and pelvis with contrast 06/03/2020 FINDINGS: Images through the lung bases demonstrate minimal dependent subsegmental atelectasis bilaterally. The liver, spleen, pancreas, adrenal glands and kidneys are within normal limits. The abdominal aorta tapers normally. The gallbladder is contracted. The appendix is well-visualized and is within normal limits. There is no evidence of bowel obstruction. No free fluid or free air is seen within the abdomen. No retroperitoneal lymphadenopathy is seen. Images through the pelvis demonstrate the urinary bladder distended with urine. The prostate gland is mildly enlarged. No free fluid is seen. No abnormal soft tissue mass is noted. No pelvic or inguinal lymphadenopathy is seen. Minimal S- shaped curvature of the thoracolumbar spine is seen. Degenerative changes are seen involving the mid and lower lumbar spine along with both hips. IMPRESSION: No acute abnormality is seen. Justifications for Admission Other Justification PAUL VILLELA MD Jun 04, 2020 07:55
[2020-06-04 11:00] VITALS: BP 124/76
[2020-06-04 13:36] LABS: PROTHROMBIN TIME PATIENT 14.7 SEC (11.7-14.0)
--- NOTE | 2020-06-04 14:11 | NUR ---
Pharmacy Warfarin Dosing Note S: Pharmacy consulted to assist with anticoagulation therapy started 06/03/20 O: YAHAIRA LUNDBERG is a 45 year old M with DVT LABS: Last INR: 1.2 Last HGB: 13.1 Last HCT: 38.4 Last PLT: 229 Last dose of 6 mg given on 06/03/20 at 1553 A:INR of 1.2 is below desired range. Target range for this patient is: 2 -3 P: Warfarin dose: 10 mg Today at 1600 Bridge Therapy: Heparin Next INR due 06/05/20 AM Pharmacy anticoagulation service will continue to follow. JAS SESAY RPH, 06/04/20 [id number]
[2020-06-04 15:00] VITALS: BP 128/72
[2020-06-04] MEDS ORDERED: WARFARIN 5 MG TABLET. PO ONE (16:00)
[2020-06-04 19:00] VITALS: BP 128/74
[2020-06-04 23:00] VITALS: BP 135/75
[2020-06-05] MEDS: HEPARIN 25,000UTS/250ML PREMIX 250 ML IV PRN ×2 (00:21→14:11)
[2020-06-05 03:00] VITALS: BP 134/83
[2020-06-05 07:00] VITALS: BP 127/86
--- NOTE | 2020-06-05 08:13 | PDOC ---
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 We will continue heparin GTT and bridge onto Coumadin therapy. Consult hematology for further recommendations. Will obtain CT angiogram chest abdomen pelvis to rule out an obstructive lesion. Acute pulmonary embolism - likely due to DVT treatment failure. Small nonocclusive filling defects are seen involving branches of the right lower lobe pulmonary artery consistent with pulmonary emboli. No additional filling defect is seen. 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 Did have a recent procedure in his right ear though no actual neurofibromas. It was superficial. Recent COVID - march 13, still with some shortness of breath. plan FEN - General diet PPX - heparin, coumadin FULL CODE Dispo - inpatient. HEME CONSULT d/w RN History of Present Illness History of Present Illness Mr Lundberg is a 45-year-old male with PMH neurofibromatosis 2, recent DVT who presents to the emergency room complaining of worsening swelling in his right lower extremity. Patient was seen here in the emergency room on 20 May at that time was diagnosed with a DVT in his right lower extremity and was discharged on 10 mg Eliquis twice daily for 7 days and 5 mg twice daily thereafter and has been compliant with this therapy. Since then his swelling has progressively gotten worse. He has increased pain in his leg. 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 He denies any chest pain or shortness of breath. Most of his pain is up by his thigh. Pain feels like aching and pressure. He does note he was diagnosed with SARS-CoV-2 on 03/13/2020 and did not require hospitalization though he still does have cough fatigue and weakness related to this. He is a non-smoker does not drink or use drugs. He does note that he has a paternal uncle who did have a DVT. His maternal grandmother did have a gynecological malignancy but otherwise no cancer history in the family. Labs with no acute abnormality Right lower extremity venous Doppler reveals more extensive DVT. Started on heparin GTT with warfarin and admitted for further care due to Eliquis failure. Underwent CTPA which revealed right lower lobe pulmonary emboli. CT abdomen pelvis with no lymphadenopathy no obstructive lesions mild prostate hyperplasia. Overnight afebrile. No chest pain despite his diagnosis of right-sided PE. Swelling in his right lower extremity is improving slightly today. Pain is improved a little bit. Vitals Vitals Vital Signs Date Time Temp Pulse Resp B/P (MAP) Pulse Ox O2 Delivery O2 Flow Rate FiO2 06/05/20 07:00 98.0 66 18 127/86 (100) 100 Room Air 98.0 Physical Exam General: Alert, Oriented X3, Cooperative, No acute distress Heart: Regular rate Abdomen: Normal bowel sounds, Soft, No tenderness, No hepatosplenomegaly, No masses Extremities: No clubbing, No cyanosis, Normal pulses, Other (Right LE 3+ edema, swollen) Skin: No rashes, No breakdown, No significant lesion Labs LABS Right Lower Extremity Venous Doppler Ultrasound History: Worsening swelling Comparison: May 20, 2020 Procedure: Color flow, duplex, spectral analysis and 2D images are obtained with and without compression in the area of the common femoral vein, superficial femoral vein - femoral vein junction, main femoral vein (superficial femoral vein) and popliteal vein. Veins of the proximal calf are also imaged. Findings: There is nonocclusive thrombus in the deep femoral vein and the proximal and mid femoral vein and occluding thrombus in the distal femoral vein and popliteal vein and anterior peroneal vein. There is also clot in the PT views. Impression: Extensive right-sided DVT has become worse since the prior study. Electronically signed by: Michelle Bains III, MD (06/02/2020 10:45 PM) [facility] DICTATED and SIGNED BY: MICHELLE BAINS III, MD DATE: 06/02/20 [id number] 0Signed PATIENT: YAHAIRA LUNDBERG ACCOUNT: [id number] : 1975 LOCATION: [address] [place] [address] AGE: 45 SEX: M EXAM STATUS: ADM IN ORD. PHYSICIAN: PAUL VILLELA MD REASON: LLE PAIN, SOA, concern for neurofibroma or malignancy as etiology PROCEDURE: CT ANGIO CHEST W ABD PEL W/ CTA scan of the Chest with Contrast (Pulmonary Embolism protocol) 06/03/2020 Clinical History: DVT. Technique: After the intravenous administration of 100 cc of Isovue-370, contiguous, 0.625 mm axial sections were obtained through the chest. 2 mm axial and 3D MIP coronal and sagittal reconstructed images were obtained. One or more of the following individualized dose reduction techniques were utilized for this study: 1. Automated exposure control. 2. Adjustment of the mA and/or kV according to patient size. 3. Use of iterative reconstruction technique. Findings: Small nonocclusive filling defects are seen involving branches of the right lower lobe pulmonary artery consistent with pulmonary emboli. No additional filling defect is seen. The heart and thoracic aorta are within normal limits. No hilar, mediastinal or axillary lymphadenopathy is seen. Minimal dependent subsegmental atelectasis is seen involving both lungs. Small bulla are seen involving the right lower lobe. No area of consolidation is noted. No pneumothorax or pleural effusion is seen. Impression: Small nonocclusive pulmonary emboli are seen involving the right lower lobe. These findings were discussed with patient's nurse. CT scan of the abdomen and pelvis with contrast 06/03/2020 CLINICAL HISTORY: Unexplained DVT involving the right lower extremity. TECHNIQUE: After the intravenous administration of 100 cc of Isovue-370, contiguous, 5 mm axial sections were obtained through abdomen and pelvis. One or more of the following individualized dose reduction techniques were utilized for this study: 1. Automated exposure control. 2. Adjustment of the mA and/or kV according to patient size. 3. Use of iterative reconstruction technique. FINDINGS: Images through the lung bases demonstrate minimal dependent subsegmental atelectasis bilaterally. The liver, spleen, pancreas, adrenal glands and kidneys are within normal limits. The abdominal aorta tapers normally. The gallbladder is contracted. The appendix is well-visualized and is within normal limits. There is no evidence of bowel obstruction. No free fluid or free air is seen within the abdomen. No retroperitoneal lymphadenopathy is seen. Images through the pelvis demonstrate the urinary bladder distended with urine. The prostate gland is mildly enlarged. No free fluid is seen. No abnormal soft tissue mass is noted. No pelvic or inguinal lymphadenopathy is seen. Minimal S- shaped curvature of the thoracolumbar spine is seen. Degenerative changes are seen involving the mid and lower lumbar spine along with both hips. IMPRESSION: No acute abnormality is seen. Electronically signed by: Daquan Berg MD (06/03/2020 5:42 PM) [id number] DICTATED and SIGNED BY: DAQUAN BERG MD DATE: 06/03/20 [id number] Laboratory Tests Test 06/04/20 12:50 Prothrombin Time 14.7 SEC (11.7-14.0) Prothromb Time International Ratio 1.2 (0.8-1.1) Assessment and Plan Assessmemt and Plan Problems Medical Problems: (1) Dvt femoral (deep venous thrombosis) Status: Acute Comment Review of Relevant I have reviewed the following items lowell (where applicable) has been applied. Labs Laboratory Tests Test 06/03/20 09:13 06/04/20 12:50 Activated Partial Thromboplast Time 109 SEC (24-38) Prothrombin Time 14.7 SEC (11.7-14.0) Prothromb Time International Ratio 1.2 (0.8-1.1) Laboratory Tests Test 06/04/20 12:50 Prothrombin Time 14.7 SEC (11.7-14.0) Prothromb Time International Ratio 1.2 (0.8-1.1) Medications Current Medications Heparin Sodium/ Dextrose 250 ml @ 0 mls/hr CONT PRN IV PER PROTOCOL Last administered on 06/05/20at 00:21; Start 06/03/20 at 00:30 Heparin Sodium (Porcine) (Heparin Sodium) 3,600 unit PRN Q6HRS PRN IV FOR UFH LEVEL LESS THAN 0.2; Start 06/03/20 at 00:30 Heparin Sodium (Porcine) (Heparin Sodium) 1,800 unit PRN Q6HRS PRN IV FOR UFH LEVEL 0.2 - 0.29; Start 06/03/20 at 00:30 Heparin Sodium (Porcine) (Heparin Sodium) 5,000 unit 1X ONCE IV Last administered on 06/03/20at 01:13; Start 06/03/20 at 01:00; Stop 06/03/20 at 01:01; Status DC Influenza Virus Vaccine Quadrival (Fluzone Quad Syringe) 0.5 ml ONCE ONCE VAX IM Last administered on 06/03/20at 08:44; Start 06/03/20 at 09:00; Stop 06/03/20 at 09:01; Status DC Warfarin Sodium (Coumadin) 6 mg 1X WARF ONCE PO Last administered on 06/03/20at 15:53; Start 06/03/20 at 16:00; Stop 06/03/20 at 16:01; Status DC Warfarin Sodium (Coumadin Per Pharmacy) 1 each PRN DAILY PRN MC SEE COMMENTS Last administered on 06/04/20at 14:09; Start 06/03/20 at 07:15 Iohexol (Omnipaque 350 Mg/ml) 100 ml 1X ONCE IV Last administered on 06/03/20at 16:35; Start 06/03/20 at 16:15; Stop 06/03/20 at 16:16; Status DC Info (CONTRAST GIVEN -- Rx MONITORING) 1 each PRN DAILY PRN MC SEE COMMENTS; Start 06/03/20 at 16:30; Stop 06/05/20 at 16:29 Warfarin Sodium (Coumadin) 10 mg 1X WARF ONCE PO Last administered on 06/04/20at 16:11; Start 06/04/20 at 16:00; Stop 06/04/20 at 16:01; Status DC Active Scripts Active Eliquis (Apixaban) 5 Mg Tablet 5 Mg PO BID Take 2 tablets twice a day for 7 days then take 1 tablet once a day Vitals/I & O Vital Sign - Last 24 Hours 06/04/20 06/04/20 06/04/20 06/04/20 08:15 11:00 15:00 19:00 Temp 97.8 98.1 98.2 97.8 98.1 98.2 Pulse 63 76 83 Resp 16 16 16 B/P (MAP) 124/76 (92) 128/72 (90) 128/74 (92) Pulse Ox 96 97 94 O2 Delivery Room Air Room Air Room Air Room Air 06/04/20 06/04/20 06/05/20 06/05/20 19:30 23:00 03:00 07:00 Temp 98.1 98.3 98.0 98.1 98.3 98.0 Pulse 74 68 66 Resp 18 18 18 B/P (MAP) 135/75 (95) 134/83 (100) 127/86 (100) Pulse Ox 98 97 100 O2 Delivery Room Air Room Air Room Air Room Air Intake and Output 06/04/20 06/04/20 06/05/20 15:00 23:00 07:00 Intake Total 850 ml 120 ml Balance 850 ml 120 ml Justicifation of Admission Dx: Justifications for Admission: Justification of Admission Dx: Yes Comments: DVT, PE ACUTE CHANTELLE UP MD Jun 05, 2020 08:13
[2020-06-05 09:00] LABS: PROTHROMBIN TIME PATIENT 16.9 SEC (11.7-14.0)
--- NOTE | 2020-06-05 09:25 | PDOC2 ---
CONSULT Date of Consult Date of Consult DATE: 06/05/20 TIME: 09:09 Reason for Consult Reason for Consult: DVT, progressing while on Eliquis Referring Physician Referring Physician: Dr Han Identification/Chief Complaint Chief Complaint Leg pain and edema Source Source: Chart review, Patient History of Present Illness Reason for Visit: Frankie Collazo is a 45-year-old male with PMH neurofibromatosis 2, recent DVT who presented to the emergency room complaining of worsening swelling in his right lower extremity. Patient was seen recently in the [facility] ER on 05/20/20 with similar complaints and was diagnosed with a DVT in his right lower extremity and was discharged home on 10 mg Eliquis twice daily for 7 days and 5 mg twice daily thereafter and had been compliant with this therapy. Since then his swelling has progressively gotten worse. He has increased pain in his leg. 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 He denies any chest pain or shortness of breath. Most of his pain is up by his thigh. Pain feels like aching and pressure. He is a non-smoker does not drink or use drugs. He does note that he has a paternal uncle who did have a DVT. His maternal grandmother did have a gynecological malignancy but otherwise no cancer history in the family. Labs with no acute abnormality Right lower extremity venous Doppler reveals more extensive DVT. Started on heparin GTT with warfarin and admitted for further care due to Eliquis failure. Hematology has been consulted for recommendations for anticoagulation Past Medical History CENTRAL NERVOUS SYSTEM: Other (Neurofibromatosis II) Heme/Onc: Other (DVT) Past Surgical History Past Surgical History: Hernia Repair Family History Family History: Cancer (C[employer] W[employer] - maternal grandmother), Other (DVT - paternal uncle) Social History No ALCOHOL: none Drugs: None Current Problem List Problem List Problems Medical Problems: (1) Dvt femoral (deep venous thrombosis) Status: Acute Current Medications Current Medications Current Medications Heparin Sodium/ Dextrose 250 ml @ 0 mls/hr CONT PRN IV PER PROTOCOL Last administered on 06/05/20at 00:21; Start 06/03/20 at 00:30 Heparin Sodium (Porcine) (Heparin Sodium) 3,600 unit PRN Q6HRS PRN IV FOR UFH LEVEL LESS THAN 0.2; Start 06/03/20 at 00:30 Heparin Sodium (Porcine) (Heparin Sodium) 1,800 unit PRN Q6HRS PRN IV FOR UFH LEVEL 0.2 - 0.29; Start 06/03/20 at 00:30 Heparin Sodium (Porcine) (Heparin Sodium) 5,000 unit 1X ONCE IV Last administered on 06/03/20at 01:13; Start 06/03/20 at 01:00; Stop 06/03/20 at 01:01; Status DC Influenza Virus Vaccine Quadrival (Fluzone Quad Syringe) 0.5 ml ONCE ONCE VAX IM Last administered on 06/03/20at 08:44; Start 06/03/20 at 09:00; Stop 06/03/20 at 09:01; Status DC Warfarin Sodium (Coumadin) 6 mg 1X WARF ONCE PO Last administered on 06/03/20at 15:53; Start 06/03/20 at 16:00; Stop 06/03/20 at 16:01; Status DC Warfarin Sodium (Coumadin Per Pharmacy) 1 each PRN DAILY PRN MC SEE COMMENTS Last administered on 06/04/20at 14:09; Start 06/03/20 at 07:15 Iohexol (Omnipaque 350 Mg/ml) 100 ml 1X ONCE IV Last administered on 06/03/20at 16:35; Start 06/03/20 at 16:15; Stop 06/03/20 at 16:16; Status DC Info (CONTRAST GIVEN -- Rx MONITORING) 1 each PRN DAILY PRN MC SEE COMMENTS; Start 06/03/20 at 16:30; Stop 06/05/20 at 16:29 Warfarin Sodium (Coumadin) 10 mg 1X WARF ONCE PO Last administered on 06/04/20at 16:11; Start 06/04/20 at 16:00; Stop 06/04/20 at 16:01; Status DC Active Scripts Active Eliquis (Apixaban) 5 Mg Tablet 5 Mg PO BID Take 2 tablets twice a day for 7 days then take 1 tablet once a day Allergies Allergies: Coded Allergies: No Known Drug Allergies (Unverified , 09/03/15) ROS General: YES: Fatigue, Malaise PSYCHOLOGICAL ROS: No: Hallucinations, Hostility Eyes: No Eye Pain, No Itchy Eyes HEENT: No: Oral lesions, Sinus pain ALLERGY AND IMMUNOLOGY: No: Nasal Congestion, Post Nasal Drip Respiratory: No: Cough, Hemoptysis Cardiovascular: No Chest Pain, No Palpitations Gastrointestinal: No Nausea, No Vomiting Genitourinary: No Dysuria, No Frequency Musculoskeletal: No Gait Disturbance, No Joint Pain Neurological: No Behavorial Changes Skin: No Dry Skin, No Eczema Physical Exam General: Alert, Oriented X3 HEENT: Atraumatic, PERRLA Heart: Regular rate, Normal S1, Normal S2 Abdomen: Soft Extremities: No clubbing Skin: No rashes Neuro: Normal gait Psych/Mental Status: Mental status NL MUSCULOSKELETAL: No joint tenderness Vitals VITALS Vital Signs Date Time Temp Pulse Resp B/P (MAP) Pulse Ox O2 Delivery O2 Flow Rate FiO2 06/05/20 07:00 98.0 66 18 127/86 (100) 100 Room Air 98.0 Labs Labs Laboratory Tests Test 06/03/20 09:13 06/04/20 12:50 Activated Partial Thromboplast Time 109 SEC (24-38) Prothrombin Time 14.7 SEC (11.7-14.0) Prothromb Time International Ratio 1.2 (0.8-1.1) Laboratory Tests Test 06/04/20 12:50 Prothrombin Time 14.7 SEC (11.7-14.0) Prothromb Time International Ratio 1.2 (0.8-1.1) Assessment/Plan Assessment/Plan Assessment: Pulmonary embolism, unprovoked Right lower extremity DVT Hypertension Obesity Neurofibromatosis, type II Recommendations: -Given progressing right lower extremity DVT on Eliquis, would recommend switching to Lovenox 1 mg/kg every 12 hours. 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 Rani Dumont MD Medical Oncology/Hematology Ph: [phone] SHEN DUMONT MD Jun 05, 2020 09:25
[2020-06-05 11:00] VITALS: BP 120/76
--- NOTE | 2020-06-05 13:27 | NUR ---
Pharmacy Warfarin Dosing Note S: Pharmacy consulted to assist with anticoagulation therapy started 06/03/20 O: YAHAIRA LUNDBERG is a 45 year old M with recurrent DVT/PE, failed Eliquis therapy. LABS: Last INR: 1.4 Last HGB: 13.1 Last HCT: 38.4 Last PLT: 229 Last dose of 10 mg given on 06/04/20 at 1611 Vitamin K given: N A:INR of 1.4 is below desired range. Target range for this patient is: 2 - 3 P: Warfarin 10 mg Today at 1600 Bridge Therapy: continuous heparin drip Next INR due 06/06/20 Pharmacy anticoagulation service will continue to follow. ROBERT HERRERA [facility], 06/05/20 [id number]
[2020-06-05 14:29] VITALS: BP 142/75
[2020-06-05] MEDS ORDERED: HEPARIN 25,000UTS/250ML PREMIX 250 ML IV PRN (15:00)
[2020-06-05] MEDS ORDERED: HEPARIN for IV BOLUS 10,000 UNIT/10 ML VIAL. IV PRN ×3 (15:00)
--- NOTE | 2020-06-05 15:23 | NUR ---
SW following for discharge planning. Spoke with RN and reviewed chart. Pt from home. SW met with pt today. Discharge plan is home, self-care. Pt on room air, cardiac diet, IV Heparin. No anticipated SW needs on discharge.
[2020-06-05] MEDS ORDERED: WARFARIN 5 MG TABLET. PO ONE (16:00)
[2020-06-05 19:00] VITALS: BP 132/83
[2020-06-05 23:00] VITALS: BP 135/66
[2020-06-06 03:00] VITALS: BP 114/68
[2020-06-06 06:54] LABS: PROTHROMBIN TIME PATIENT 24.9 SEC (11.7-14.0)
[2020-06-06 07:00] VITALS: BP 135/80
--- NOTE | 2020-06-06 10:48 | PDOC ---
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 We will continue heparin GTT and bridge onto Coumadin therapy. Consult hematology for further recommendations. Will obtain CT angiogram chest abdomen pelvis to rule out an obstructive lesion. Acute pulmonary embolism - likely due to DVT treatment failure. Small nonocclusive filling defects are seen involving branches of the right lower lobe pulmonary artery consistent with pulmonary emboli. No additional filling defect is seen. 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 Did have a recent procedure in his right ear though no actual neurofibromas. It was superficial. Recent COVID - march 13, still with some shortness of breath. plan FEN - General diet PPX - coumadin INR GOAL 2.1-2.5 FULL CODE Dispo - inpatient. 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 Patient was seen here in the emergency room on 20 May at that time was diagnosed with a DVT in his right lower extremity and was discharged on 10 mg Eliquis twice daily for 7 days and 5 mg twice daily thereafter and has been compliant with this therapy. Since then his swelling has progressively gotten worse. He has increased pain in his leg. 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 He denies any chest pain or shortness of breath. Most of his pain is up by his thigh. Pain feels like aching and pressure. He does note he was diagnosed with SARS-CoV-2 on 03/13/2020 and did not require hospitalization though he still does have cough fatigue and weakness related to this. He is a non-smoker does not drink or use drugs. He does note that he has a paternal uncle who did have a DVT. His maternal grandmother did have a gynecological malignancy but otherwise no cancer history in the family. Labs with no acute abnormality Right lower extremity venous Doppler reveals more extensive DVT. Started on heparin GTT with warfarin and admitted for further care due to Eliquis failure. Underwent CTPA which revealed right lower lobe pulmonary emboli. CT abdomen pelvis with no lymphadenopathy no obstructive lesions mild prostate hyperplasia. Overnight afebrile. No chest pain despite his diagnosis of right-sided PE. Swelling in his right lower extremity is improving slightly today. Pain is improved a little bit. Vitals Vitals Vital Signs Date Time Temp Pulse Resp B/P (MAP) Pulse Ox O2 Delivery O2 Flow Rate FiO2 06/06/20 08:00 Room Air 06/06/20 07:00 98.0 63 18 135/80 (98) 96 98.0 Physical Exam General: Alert, Oriented X3, Cooperative, No acute distress Heart: Regular rate, Normal S1, Normal S2 Abdomen: Soft Extremities: No clubbing Skin: No rashes Labs LABS Laboratory Tests Test 06/05/20 13:45 06/05/20 23:00 06/06/20 06:15 Activated Partial Thromboplast Time > 150 SEC (24-38) 121 SEC (24-38) 122 SEC (24-38) Prothrombin Time 24.9 SEC (11.7-14.0) Prothromb Time International Ratio 2.3 (0.8-1.1) Assessment and Plan Assessmemt and Plan Problems Medical Problems: (1) Dvt femoral (deep venous thrombosis) Status: Acute Comment Review of Relevant I have reviewed the following items lowell (where applicable) has been applied. Labs Laboratory Tests Test 06/04/20 12:50 06/05/20 08:22 06/05/20 13:45 06/05/20 23:00 Prothrombin Time 14.7 SEC (11.7-14.0) 16.9 SEC (11.7-14.0) Prothromb Time International Ratio 1.2 (0.8-1.1) 1.4 (0.8-1.1) Activated Partial Thromboplast Time > 150 SEC (24-38) 121 SEC (24-38) Test 06/06/20 06:15 Prothrombin Time 24.9 SEC (11.7-14.0) Prothromb Time International Ratio 2.3 (0.8-1.1) Activated Partial Thromboplast Time 122 SEC (24-38) Laboratory Tests Test 06/05/20 13:45 06/05/20 23:00 06/06/20 06:15 Activated Partial Thromboplast Time > 150 SEC (24-38) 121 SEC (24-38) 122 SEC (24-38) Prothrombin Time 24.9 SEC (11.7-14.0) Prothromb Time International Ratio 2.3 (0.8-1.1) Medications Current Medications Heparin Sodium/ Dextrose 250 ml @ 0 mls/hr CONT PRN IV PER PROTOCOL Last administered on 06/05/20at 14:11; Start 06/03/20 at 00:30; Stop 06/05/20 at 14:57; Status DC Heparin Sodium (Porcine) (Heparin Sodium) 3,600 unit PRN Q6HRS PRN IV FOR UFH LEVEL LESS THAN 0.2; Start 06/03/20 at 00:30; Stop 06/05/20 at 14:57; Status DC Heparin Sodium (Porcine) (Heparin Sodium) 1,800 unit PRN Q6HRS PRN IV FOR UFH LEVEL 0.2 - 0.29; Start 06/03/20 at 00:30; Stop 06/05/20 at 14:58; Status DC Heparin Sodium (Porcine) (Heparin Sodium) 5,000 unit 1X ONCE IV Last administered on 06/03/20at 01:13; Start 06/03/20 at 01:00; Stop 06/03/20 at 01:01; Status DC Influenza Virus Vaccine Quadrival (Fluzone Quad Syringe) 0.5 ml ONCE ONCE VAX IM Last administered on 06/03/20at 08:44; Start 06/03/20 at 09:00; Stop 06/03/20 at 09:01; Status DC Warfarin Sodium (Coumadin) 6 mg 1X WARF ONCE PO Last administered on 06/03/20at 15:53; Start 06/03/20 at 16:00; Stop 06/03/20 at 16:01; Status DC Warfarin Sodium (Coumadin Per Pharmacy) 1 each PRN DAILY PRN MC SEE COMMENTS Last administered on 06/05/20at 13:26; Start 06/03/20 at 07:15 Iohexol (Omnipaque 350 Mg/ml) 100 ml 1X ONCE IV Last administered on 06/03/20at 16:35; Start 06/03/20 at 16:15; Stop 06/03/20 at 16:16; Status DC Info (CONTRAST GIVEN -- Rx MONITORING) 1 each PRN DAILY PRN MC SEE COMMENTS; Start 06/03/20 at 16:30; Stop 06/05/20 at 16:29; Status DC Warfarin Sodium (Coumadin) 10 mg 1X WARF ONCE PO Last administered on 06/04/20at 16:11; Start 06/04/20 at 16:00; Stop 06/04/20 at 16:01; Status DC Warfarin Sodium (Coumadin) 10 mg 1X WARF ONCE PO Last administered on 06/05/20at 15:44; Start 06/05/20 at 16:00; Stop 06/05/20 at 16:01; Status DC Heparin Sodium/ Dextrose 250 ml @ 0 mls/hr CONT PRN IV PER PROTOCOL Last administered on 06/06/20at 07:10; Start 06/05/20 at 15:00 Heparin Sodium (Porcine) (Heparin Sodium) 30 UNITS / KG PRN Q6HRS PRN IV FOR PTT < 40; Start 06/05/20 at 15:00 Heparin Sodium (Porcine) (Heparin Sodium) 2,000 unit PRN Q6HRS PRN IV FOR PTT 40 - 58; Start 06/05/20 at 15:00 Heparin Sodium (Porcine) (Heparin Sodium) 1,000 unit PRN Q6HRS PRN IV FOR PTT 59 - 78; Start 06/05/20 at 15:00 Active Scripts Active Eliquis (Apixaban) 5 Mg Tablet 5 Mg PO BID Take 2 tablets twice a day for 7 days then take 1 tablet once a day Vitals/I & O Vital Sign - Last 24 Hours 06/05/20 06/05/20 06/05/20 06/05/20 11:00 14:29 19:00 20:00 Temp 98.0 98.0 98.1 98.0 98.0 98.1 Pulse 60 69 75 Resp 18 18 18 B/P (MAP) 120/76 (91) 142/75 (97) 132/83 (99) Pulse Ox 96 94 98 O2 Delivery Room Air Room Air Room Air Room Air 06/05/20 06/06/20 06/06/20 06/06/20 23:00 03:00 07:00 08:00 Temp 98.0 98.0 98.0 98.0 98.0 98.0 Pulse 66 66 63 Resp 18 18 18 B/P (MAP) 135/66 (89) 114/68 (83) 135/80 (98) Pulse Ox 97 96 96 O2 Delivery Room Air Room Air Room Air Room Air Intake and Output 06/05/20 06/05/20 06/06/20 15:00 23:00 07:00 Intake Total 400 ml 440 ml 0 ml Balance 400 ml 440 ml 0 ml Justicifation of Admission Dx: Justifications for Admission: Justification of Admission Dx: Yes CHANTELLE UP MD Jun 06, 2020 10:48
--- NOTE | 2020-06-06 10:52 | PDOC3 ---
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 We will continue heparin GTT and bridge onto Coumadin therapy. Consult hematology for further recommendations. Will obtain CT angiogram chest abdomen pelvis to rule out an obstructive lesion. Acute pulmonary embolism - likely due to DVT treatment failure. Small nonocclusive filling defects are seen involving branches of the right lower lobe pulmonary artery consistent with pulmonary emboli. No additional filling defect is seen. 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 Did have a recent procedure in his right ear though no actual neurofibromas. It was superficial. Recent COVID - march 13, still with some shortness of breath. plan FEN - General diet PPX - coumadin INR GOAL 2.1-2.5 FULL CODE Dispo - inpatient. 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 Patient was seen here in the emergency room on 20 May at that time was diagnosed with a DVT in his right lower extremity and was discharged on 10 mg Eliquis twice daily for 7 days and 5 mg twice daily thereafter and has been compliant with this therapy. Since then his swelling has progressively gotten worse. He has increased pain in his leg. 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 He denies any chest pain or shortness of breath. Most of his pain is up by his thigh. Pain feels like aching and pressure. He does note he was diagnosed with SARS-CoV-2 on 03/13/2020 and did not require hospitalization though he still does have cough fatigue and weakness related to this. He is a non-smoker does not drink or use drugs. He does note that he has a paternal uncle who did have a DVT. His maternal grandmother did have a gynecological malignancy but otherwise no cancer history in the family. Labs with no acute abnormality Right lower extremity venous Doppler reveals more extensive DVT. Started on heparin GTT with warfarin and admitted for further care due to Eliquis failure. Underwent CTPA which revealed right lower lobe pulmonary emboli. CT abdomen pelvis with no lymphadenopathy no obstructive lesions mild prostate hyperplasia. Overnight afebrile. No chest pain despite his diagnosis of right-sided PE. Swelling in his right lower extremity is improving slightly today. Pain is improved a little bit. Vitals Vitals Vital Signs Date Time Temp Pulse Resp B/P (MAP) Pulse Ox O2 Delivery O2 Flow Rate FiO2 06/06/20 08:00 Room Air 06/06/20 07:00 98.0 63 18 135/80 (98) 96 98.0 Physical Exam General: Alert, Oriented X3, Cooperative, No acute distress Heart: Regular rate, Normal S1, Normal S2 Abdomen: Soft Extremities: No clubbing Skin: No rashes Labs LABS Laboratory Tests Test 06/05/20 13:45 06/05/20 23:00 06/06/20 06:15 Activated Partial Thromboplast Time > 150 SEC (24-38) 121 SEC (24-38) 122 SEC (24-38) Prothrombin Time 24.9 SEC (11.7-14.0) Prothromb Time International Ratio 2.3 (0.8-1.1) Assessment and Plan Assessmemt and Plan Problems Medical Problems: (1) Dvt femoral (deep venous thrombosis) Status: Acute FINAL DIAGNOSIS Problems Medical Problems: (1) Dvt femoral (deep venous thrombosis) Status: Acute Brief Hospital Course Mr. Collazo is a 45 old [sex] who presented with [DVT ] CONDITION AT DISCHARGE: Improved Discharge Medications Current Medications Heparin Sodium/ Dextrose 250 ml @ 0 mls/hr CONT PRN IV PER PROTOCOL Last administered on 06/05/20at 14:11; Start 06/03/20 at 00:30; Stop 06/05/20 at 14:57; Status DC Heparin Sodium (Porcine) (Heparin Sodium) 3,600 unit PRN Q6HRS PRN IV FOR UFH LEVEL LESS THAN 0.2; Start 06/03/20 at 00:30; Stop 06/05/20 at 14:57; Status DC Heparin Sodium (Porcine) (Heparin Sodium) 1,800 unit PRN Q6HRS PRN IV FOR UFH LEVEL 0.2 - 0.29; Start 06/03/20 at 00:30; Stop 06/05/20 at 14:58; Status DC Heparin Sodium (Porcine) (Heparin Sodium) 5,000 unit 1X ONCE IV Last administered on 06/03/20at 01:13; Start 06/03/20 at 01:00; Stop 06/03/20 at 01:01; Status DC Influenza Virus Vaccine Quadrival (Fluzone Quad [id number] Syringe) 0.5 ml ONCE ONCE VAX IM Last administered on 06/03/20at 08:44; Start 06/03/20 at 09:00; Stop 06/03/20 at 09:01; Status DC Warfarin Sodium (Coumadin) 6 mg 1X WARF ONCE PO Last administered on 06/03/20at 15:53; Start 06/03/20 at 16:00; Stop 06/03/20 at 16:01; Status DC Warfarin Sodium (Coumadin Per Pharmacy) 1 each PRN DAILY PRN MC SEE COMMENTS Last administered on 06/05/20at 13:26; Start 06/03/20 at 07:15 Iohexol (Omnipaque 350 Mg/ml) 100 ml 1X ONCE IV Last administered on 06/03/20at 16:35; Start 06/03/20 at 16:15; Stop 06/03/20 at 16:16; Status DC Info (CONTRAST GIVEN -- Rx MONITORING) 1 each PRN DAILY PRN MC SEE COMMENTS; Start 06/03/20 at 16:30; Stop 06/05/20 at 16:29; Status DC Warfarin Sodium (Coumadin) 10 mg 1X WARF ONCE PO Last administered on 06/04/20at 16:11; Start 06/04/20 at 16:00; Stop 06/04/20 at 16:01; Status DC Warfarin Sodium (Coumadin) 10 mg 1X WARF ONCE PO Last administered on 06/05/20at 15:44; Start 06/05/20 at 16:00; Stop 06/05/20 at 16:01; Status DC Heparin Sodium/ Dextrose 250 ml @ 0 mls/hr CONT PRN IV PER PROTOCOL Last administered on 06/06/20at 07:10; Start 06/05/20 at 15:00 Heparin Sodium (Porcine) (Heparin Sodium) 30 UNITS / KG PRN Q6HRS PRN IV FOR PTT < 40; Start 06/05/20 at 15:00 Heparin Sodium (Porcine) (Heparin Sodium) 2,000 unit PRN Q6HRS PRN IV FOR PTT 40 - 58; Start 06/05/20 at 15:00 Heparin Sodium (Porcine) (Heparin Sodium) 1,000 unit PRN Q6HRS PRN IV FOR PTT 59 - 78; Start 06/05/20 at 15:00 Active Scripts Active Eliquis (Apixaban) 5 Mg Tablet 5 Mg PO BID Take 2 tablets twice a day for 7 days then take 1 tablet once a day Vital Signs Vital Signs Date Time Temp Pulse Resp B/P (MAP) Pulse Ox O2 Delivery O2 Flow Rate FiO2 06/06/20 08:00 Room Air 06/06/20 07:00 98.0 63 18 135/80 (98) 96 98.0 Labs Laboratory Tests Test 06/04/20 12:50 06/05/20 08:22 06/05/20 13:45 06/05/20 23:00 Prothrombin Time 14.7 SEC (11.7-14.0) 16.9 SEC (11.7-14.0) Prothromb Time International Ratio 1.2 (0.8-1.1) 1.4 (0.8-1.1) Activated Partial Thromboplast Time > 150 SEC (24-38) 121 SEC (24-38) Test 06/06/20 06:15 Prothrombin Time 24.9 SEC (11.7-14.0) Prothromb Time International Ratio 2.3 (0.8-1.1) Activated Partial Thromboplast Time 122 SEC (24-38) Laboratory Tests Test 06/05/20 13:45 06/05/20 23:00 06/06/20 06:15 Activated Partial Thromboplast Time > 150 SEC (24-38) 121 SEC (24-38) 122 SEC (24-38) Prothrombin Time 24.9 SEC (11.7-14.0) Prothromb Time International Ratio 2.3 (0.8-1.1) Allergies Allergies Coded Allergies Type Severity Reaction Last Updated Verified No Known Drug Allergies 09/03/15 No Disposition/Orders: D/C to Home Justicifation of Admission Dx: Justifications for Admission: Justification of Admission Dx: Yes CHANTELLE UP MD Jun 06, 2020 10:51
[2020-06-06] MEDS ORDERED: WARF-31 PO (10:53)
--- NOTE | 2020-06-06 10:54 | DISCH ---
DISCHARGE INSTRUCTIONS Condition on Discharge Condition on Discharge: Stable Activity After Discharge Activity Instructions for Disc: Activity as tolerated Lifting Instructions after Dis: No heavy lifting, No pulling or pushing, Add. restrict see below (OFF WORK X 5 DAYS) Driving Instructions after Dis: Do not drive today Weight Bearing Status after Di: As tolerated Diet after Discharge Diet after Discharge: Regular Liquid Texture: Thin Liquid Checks after Discharge Checks after discharge: Check blood press - daily Contacting the DR. after DC Call your doctor for: If your condition worsens Follow-Up Follow up with: PCP TOMORROW FOR INR BLOOD DRAW Warfarin Follow-Up Warfarin Follow UP: PER PCP CHANTELLE CLOUD MD Jun 06, 2020 10:54
[2020-06-06 11:00] VITALS: BP 132/83
--- NOTE | 2020-06-06 13:27 | NUR ---
Discharge Note: YAHAIRA LUNDBERG WAYNOKA Discharge instructions and discharge home medications reviewed with Patient and a copy given. All questions have been answered and understanding verbalized. The following instructions and handouts were given: d/c instructions Discontinued lines and drains: Peripheral IV intact. Patient discharged to Home or Self Care with Family Member via Wheelchair
[2020-06-06 13:31] LABS: PROTHROMBIN TIME PATIENT 24.3 SEC (11.7-14.0)
--- NOTE | 2020-06-06 13:34 | NUR ---
SW following for discharge planning. Spoke with RN and reviewed chart. Pt discharged home today, 06/06 self-care with no further SW needs.
[2020-06-09 08:12] LABS: CARDIOLIPIN ANTIBODIES SEE SEPARATE REPORT
== END 2020-06-06 14:52 | disposition home or self-care (01) | DRG 299 ==
LOC: ER 21:50 → 5 NORTH 06-03 01:08
PROVIDERS: ADMIT Internal Medicine; ATTEND Internal Medicine
DX: I82.411 Acute embolism and thrombosis of right femoral vein (principal); I26.99 Other pulmonary embolism without acute cor pulmonale; Q85.02 Neurofibromatosis, type 2; E66.9 Obesity, unspecified; I10 Essential (primary) hypertension; Z86.718 Personal history of other venous thrombosis and embolism; Z68.39 Body mass index [BMI] 39.0-39.9, adult; Z79.899 Other long term (current) drug therapy
CPT/HCPCS: 36415; 71275; 74177; 80048; 85025; 85520; 85610; 85730; 86146; 86147; 90471; 90686; 93971; 96374; 99285; J1644; Q9967; G0378